=== PATIENT | male | born 1945 | race Caucasian/White ===

== ENCOUNTER → 2017-08-04 07:38 | Outpatient (CLI) | payer MEDICARE, OTHER, SELFPAY ==
[2017-08-04 10:09] LABS: BUN Creatinine Ratio 14.2 (6-22); Blood Urea Nitrogen 17 mg/dL (9-20); Calcium 9.2 mg/dL (8.4-10.2); Carbon Dioxide 31 mmol/L (22-32); Chloride 100 mmol/L (98-107); Estimated Glomerular Filt Rate 59.3 mL/min (>60); Glucose 91 mg/dL (80-110); HEMOLYSIS < 15 (0-50); Potassium 4.1 mmol/L (3.4-5.1); Sodium 142 mmol/L (137-145)
== END ==
PROVIDERS: Visit Provider Family Medicine
DX: N18.3 Chronic kidney disease, stage 3 (moderate) (principal)
CPT/HCPCS: 36415; 80048

== ENCOUNTER → 2017-09-26 07:29 | Outpatient (CLI) | payer MEDICARE, OTHER, SELFPAY ==
[2017-09-26 08:37] LABS: Alanine Aminotransferase 27 IU/L (21-72); Albumin 4.2 g/dL (3.5-5.0); Albumin Globulin Ratio 1.6 (1.0-2.8); Alkaline Phosphatase 80 U/L (38-126); Aspartate Aminotransferase 21 IU/L (17-59); Bilirubin Total 0.9 mg/dL (0.2-1.3); Blood Urea Nitrogen 26 mg/dL (9-20); Calcium 9.1 mg/dL (8.4-10.2); Carbon Dioxide 29 mmol/L (22-32); Chloride 106 mmol/L (98-107); Estimated Glomerular Filt Rate 54.1 mL/min (>60); Globulin 2.7 g/dL (1.7-4.1); Glucose 92 mg/dL (80-110); HEMOLYSIS < 15 (0-50); Potassium 3.7 mmol/L (3.4-5.1); Sodium 145 mmol/L (137-145); Total Protein 6.9 g/dL (6.3-8.2)
== END ==
PROVIDERS: Visit Provider Specialist
DX: N18.2 Chronic kidney disease, stage 2 (mild) (principal); I10 Essential (primary) hypertension; E78.2 Mixed hyperlipidemia
CPT/HCPCS: 36415; 80053

== ENCOUNTER → 2018-03-08 08:08 | Outpatient (CLI) | payer MEDICARE, OTHER, SELFPAY ==
[2018-03-08 09:39] LABS: Add Manual Diff / Slide Review NO; Appearance Urine UA CLEAR; Basophils Percent Auto 0.9 % (0-2); Bilirubin Urine UA NEGATIVE (NEGATIVE); Color Urine UA YELLOW; Eosinophils Percent Auto 6.5 % (2-4); Glucose Urine UA NEGATIVE (Negative); Hemoglobin 15.6 g/dL (13.5-17.5); Ketones Urine UA NEGATIVE (NEGATIVE); Leukocyte Esterase Urine UA NEGATIVE (NEGATIVE); Lymphocytes Percent Auto 23.2 % (25-40); Mean Corpuscular HGB Conc 33.9 % (30-36); Mean Corpuscular Hemoglobin 30.9 PG (26-34); Mean Corpuscular Volume 91.2 fL (80-100); Monocytes Percent Auto 9.8 % (3-14); Neutrophils Absolute Auto 3100 /uL (1500-7000); Neutrophils Percent Auto 59.6 % (50-75); Nitrite Urine UA NEGATIVE (Negative); Occult Blood Urine UA NEGATIVE (Negative); Platelet Count 178 X10^3/uL (150-400); Protein Urine UA NEGATIVE (Negative); Red Blood Cell Count 5.04 X10^6/uL (4.5-5.9); Red Cell Distribution Width 13.9 % (11.6-14.8); Specific Gravity Urine UA 1.015 (1.000-1.035); Urobilinogen Urine UA 0.2 E.U./dL (0.2); White Blood Cell Count 5.2 X10^3/uL (4.5-11.0)
[2018-03-08 10:30] LABS: Alanine Aminotransferase 31 IU/L (21-72); Albumin 4.1 g/dL (3.5-5.0); Albumin Globulin Ratio 1.6 (1.0-2.8); Alkaline Phosphatase 76 U/L (38-126); Aspartate Aminotransferase 24 IU/L (17-59); BUN Creatinine Ratio 12.5 (6-22); Bilirubin Total 1.2 mg/dL (0.2-1.3); Blood Urea Nitrogen 15 mg/dL (9-20); Calcium 9.2 mg/dL (8.4-10.2); Carbon Dioxide 28 mmol/L (22-32); Chloride 105 mmol/L (98-107); Cholesterol 172 mg/dL (140-199); Estimated Glomerular Filt Rate 59.2 mL/min (>60); Globulin 2.6 g/dL (1.7-4.1); Glucose 92 mg/dL (80-110); HDL Cholesterol 54 mg/dL (40-60); HEMOLYSIS < 15 (0-50); LDL Cholesterol Calculated 101 mg/dL (<100); Potassium 4.1 mmol/L (3.4-5.1); Sodium 143 mmol/L (137-145); Total Protein 6.7 g/dL (6.3-8.2); Triglycerides 86 mg/dL (35-150)
[2018-03-08 10:59] LABS: Prostate Specific Antigen Scrn 2.03 ng/mL (0.1-4.0)
[2018-03-08 11:20] LABS: Thyroid Stimulating Hormone 3.89 uIU/mL (0.47-4.68)
== END ==
PROVIDERS: PCP Family Medicine; Visit Provider Family Medicine
DX: E78.00 Pure hypercholesterolemia, unspecified (principal); I10 Essential (primary) hypertension; N18.3 Chronic kidney disease, stage 3 (moderate); Z51.81 Encounter for therapeutic drug level monitoring; Z12.5 Encounter for screening for malignant neoplasm of prostate
CPT/HCPCS: 36415; 80053; 80061; 81003; 84443; 85025; G0103

== ENCOUNTER 2018-09-10 12:29 | Day surgery (SDC) | payer MEDICARE, OTHER, SELFPAY ==
--- NOTE | 2018-09-10 | PATH_ITS ---
[facility] Accession Number: [id number] . 01 Material submitted: . PART A: colon - SIGMOID POLYP PART B: colon - SIGMOID POLYP . 02 Diagnosis: A. Sigmoid Colon, Polyp: Tubular adenoma. . B. Sigmoid Colon, Polyp: Colonic mucosa with no diagnostic abnormality, consistent with polypoid redundancy. Negative for serrated lesion, dysplasia or malignancy. . . . I09/11/2018 . 02 Electronically signed: . Favian Mercedes MD, PhD, Pathologist NPI- [id number] . 01 Gross description: . Part A: SIGMOID POLYP: Received in formalin is 1 fragment(s) of ruffin, soft tissue measuring 0.3 x 0.3 x 0.3 cm which is entirely submitted and submitted entirely in 1 cassette(s) Part B: SIGMOID POLYP: Received in formalin is 1 fragment(s) of ruffin, soft tissue measuring 0.5 x 0.3 x 0.2 cm which is entirely submitted and submitted entirely in 1 cassette(s) /DMC /DMC . 02 Pathologist provided ICD-10: D12.5, K63.5 . 02 CPT . 621889, 870897 Performed at: 01 [facility] [address], [place], [place] [id number] MD Vamshi Kincaid MD Phone: [phone] Performed at: 02 [facility] [address] [place], [place] [id number] MD Courtney Harris MD Phone: [phone]
--- NOTE | 2018-09-10 12:43 | PM.HP.1 ---
History of Present Illness Date Patient Seen: 09/10/18 Time Patient Seen: 12:43 Chief complaint: [id number] SCREENING COLONOSCOPY Narrative: 73yo M for surveillance colonoscopy. Has history of colon polyps. Last scope 5 years ago. Mother had CRC diagnosed at age 89 and lived to be 102. No alarm symptoms. Patient History Medical History Essential hypertension (Chronic 08/20/15) Chronic renal insufficiency, stage III (moderate) (Chronic 05/12/16) BPH (benign prostatic hyperplasia) (Chronic Unknown) Chronic renal insufficiency (Chronic Unknown) Erectile dysfunction (Chronic Unknown) GERD (gastroesophageal reflux disease) (Chronic Unknown) Glaucoma (Chronic Unknown) Hyperlipemia (Chronic Unknown) Hypertension (Chronic Unknown) Cataract (Resolved ) Fx wrist (Resolved 2000) Surgical History History of carpal tunnel surgery (Resolved 1984) Hx of cataract surgery (Resolved 2015) Family History Father Heart disease Grandfather Cancer Grandmother No problems noted. Mother Cancer Grandmother No problems noted. Grandfather Heart disease Sister No problems noted. Social History Smoking Status: Never smoker Family & Social History Family History Father Heart disease Grandfather Cancer Grandmother No problems noted. Mother Cancer Grandmother No problems noted. Grandfather Heart disease Sister No problems noted. Tobacco & Substance use: Smoking Status Never smoker Meds Home Medications Medication Instructions Recorded Confirmed Type ASPIRIN (Aspirin EC) 81 mg PO QDAY #0 06/07/11 05/07/18 History timolol maleate 1 drp OPHTH BID #0 06/13/16 05/07/18 History atenolol 100 mg tablet 50 mg PO QDAY #45 tabs 08/28/17 05/07/18 Rx tizanidine 2 mg tablet 2 mg PO TID PRN #90 tab 10/30/17 05/07/18 Rx simvastatin 20 mg tablet 20 mg PO HS #90 tab 11/09/17 05/07/18 Rx latanoprost (PF) 0.005 % eye drops 1 drop EYE-BOTH DAILY ml 01/30/18 05/07/18 History hydrochlorothiazide 12.5 mg tablet See Rx Instructions .ROUTE 07/23/18 Rx .COMPLEX #90 tab amlodipine 5 mg tablet 5 mg PO DAILY #90 tab 07/28/18 Rx Allergies Allergy/AdvReac Type Severity Reaction Status Date / Time Penicillins [PENICILLINS] Allergy Mild ITCH, HIVES Verified 09/10/18 12:47 Review of Systems Constitutional Constitutional: Reports as per HPI Exam Narrative Exam Narrative: AAO, NAD EOMI, MMM, no scleral icterus unlabored RA soft, nt/nd MAEW visible skin dry and intact Assessment & Plan (1) History of colon polyps: Current visit: Yes Status: Acute Assessment & Plan narrative: - plan for surveillance colonoscopy in high risk patient --> all R/B/A discussed and pt wishes to proceed
[2018-09-10 12:45] VITALS: BP 190/95; PULSE 62; RESP 20; TEMP 36.4; O2SAT 97; BMI 28.1
[2018-09-10] MEDS: SODIUM CHLORIDE 0.9% 1,000 ML 200 ML IV (12:46)
[2018-09-10] MEDS: MIDAZOLAM 5 MG/5 ML VIAL IV (14:37)
[2018-09-10] MEDS: fentaNYL 250 MCG/5 ML INJ IV (14:38)
--- NOTE | 2018-09-10 14:48 | PM.OP.ENDO ---
Operative Date/Time/Diagnoses Date of procedure: 09/10/18 Time of procedure: 14:48 Pre-op diagnosis: History of colon polyps; Family history of colon cancer Post-op diagnosis: other (1. same 2. diverticulosis 3. polyps) Procedure & Clinicians Study performed: Surveillance colonoscopy in high risk patient Same procedure as scheduled: Yes Indications: 73yo M with personal history of polyps and family history of CRC of mother in her late 80s. Surgeon: Joy Prajapati Procedure Notes SCOAP/Timeout: 1419 Procedure in detail: After obtaining informed consent, the patient was brought to the GI suite and placed in the left lateral decubitus position on the examination table. After placement of appropriate monitors, the patient was given incremental doses of Versed and Fentanyl until an appropriate level of sedation was achieved. A time out was held per SCOAP protocol. A digital rectal examination was performed and did not reveal any masses or obstructing lesions. The colonoscope was gently passed into the patient's anus and the entire colon navigated to the level of the cecum with minimal difficulty. Prep was adequate, mostly clear but occasional stool balls were noted and stool impacted numerous diverticula. Once in the cecum, the scope was slowly withdrawn being sure to go before and beyond all mucosal folds and prominences as able to get a thorough examination. Two small polyps are noted in the sigmoid colon, one 4mm and raised and the other diminutive and flat. Other findings include severe bower-colonic diverticulosis. At the level of the rectal vault, the scope was retroflexed and the internal anal canal was examined. The scope was straightened and air aspirated from the colon. The instrument was removed from the patient's body and the procedure was concluded. The patient was allowed to awaken from sedation without difficulty and taken to the post-anesthesia care unit in good condition. Scope withdrawal time: 9 min Sedation minutes: 26 Findings: diverticulosis and polyp (sigmoid polyp at 50cm- flat, hyperplastic in appearance; sigmoid polyp at 40cm- protuberant, 4mm, removed with hot snare) Specimen(s): other (sigmoid polyps x2) Complications: none Impression: 1. Severe bower-colonic diverticulosis 2. Sigmoid polyps x2 Recommendations: Colonscopy in 5 years (pending path) and High fiber diet Follow up: as needed Disposition: PACU
[2018-09-10 14:50] VITALS: BP 114/68; PULSE 68; RESP 20; TEMP 36.9; O2SAT 97
[2018-09-10 15:15] VITALS: BP 127/77; PULSE 65; RESP 20; TEMP 36.9; O2SAT 97
== END 2018-09-10 14:15 | disposition home or self-care (01) ==
PROVIDERS: PCP Family Medicine; Visit Provider Surgery
PROC: 0DJD8ZZ Inspection of Lower Intestinal Tract, Via Natural or Artificial Opening Endoscopic (ICD-10-PCS; CPT 45378; principal; 2018-09-10 14:00)
DX: Z86.010 Personal history of colon polyps (principal); Z80.0 Family history of malignant neoplasm of digestive organs; K57.30 Diverticulosis of large intestine without perforation or abscess without bleeding; D12.5 Benign neoplasm of sigmoid colon; K63.5 Polyp of colon
CPT/HCPCS: 45385; 88305; 99152; J2250; J3010

== ENCOUNTER → 2018-09-11 07:40 | Outpatient (CLI) | payer MEDICARE, OTHER, SELFPAY ==
[2018-09-11 08:20] LABS: Alanine Aminotransferase 27 IU/L (21-72); Albumin 4.3 g/dL (3.5-5.0); Albumin Globulin Ratio 1.4 (1.0-2.8); Alkaline Phosphatase 76 U/L (38-126); Aspartate Aminotransferase 23 IU/L (17-59); BUN Creatinine Ratio 16.2 (6-22); Bilirubin Total 1.7 mg/dL (0.2-1.3); Blood Urea Nitrogen 21 mg/dL (9-20); Carbon Dioxide 29 mmol/L (22-32); Chloride 106 mmol/L (98-107); Globulin 3.1 g/dL (1.7-4.1); Glucose 116 mg/dL (80-110); HEMOLYSIS < 15 (0-50); Potassium 3.7 mmol/L (3.4-5.1); Sodium 143 mmol/L (137-145); Total Protein 7.4 g/dL (6.3-8.2)
== END ==
PROVIDERS: PCP Family Medicine; Visit Provider Specialist
DX: N18.2 Chronic kidney disease, stage 2 (mild) (principal); I10 Essential (primary) hypertension; E78.2 Mixed hyperlipidemia
CPT/HCPCS: 36415; 80053

== ENCOUNTER → 2019-02-28 07:37 | Outpatient (CLI) | payer MEDICARE, OTHER, SELFPAY ==
--- NOTE | 2019-02-28 07:43 | DI.RAD.S_ITS ---
PROCEDURE: XR SHOULDER RT MIN 2V INDICATIONS: impingement syndrome of R shoulder Region TECHNIQUE: 3 views of the shoulder were acquired. COMPARISON: None. FINDINGS: Bones: No fractures or dislocations. No suspicious bony lesions. Visualized ribs appear intact. Mild degenerative change at the glenohumeral and acromioclavicular joints, without osteophyte impingement visualized against the expected course of the supraspinatus rotator cuff. Soft tissues: No suspicious soft tissue calcifications. IMPRESSION: Osseous impingement is not identified, but there is mild degenerative osteoarthritic change. Please note that fibrous hypertrophy and secondary impingement is not detectable by plain film. MR scanning may be warranted. Dictated by: Joselito Faulkner M.D. on 02/28/2019 at 8:38 Approved by: Joselito Faulkner M.D. on 02/28/2019 at 8:40
--- NOTE | 2019-02-28 07:43 | DI.RAD.S_ITS ---
PROCEDURE: XR CHEST 2V INDICATIONS: benign non-nodular prostatic TECHNIQUE: 2 views of the chest were acquired. COMPARISON: None. FINDINGS: Surgical changes and devices: None. Lungs and pleura: Lungs are clear except for a mild interstitial prominence perhaps reflecting prior smoking history. No pleural effusions or pneumothorax and there is a left-sided area of fusiform pleural thickening laterally, superimposed on the inferior tip of the left scapula, having a craniocaudad length of 5.1 cm in maximal transverse dimension of 1.9 cm. Underlying ostiolysis of rib structures is not found. Mediastinum: Mediastinal contours are normal. Heart size is normal. Bones and chest wall: No suspicious bony abnormalities. Soft tissues appear unremarkable. IMPRESSION: Mild interstitial prominence over the lung parenchyma, suspect prior smoking history. Lateral pleural mass on the left at approximately the junction of the upper and middle thirds, measuring up to 5.1 x 1.9 cm, which could represent benign or malignant etiology. Followup contrast enhanced CT scanning appears warranted unless outside comparison studies are available to establish chronicity of this finding. Dictated by: Joselito Faulkner M.D. on 02/28/2019 at 8:30 Approved by: Joselito Faulkner M.D. on 02/28/2019 at 8:38
[2019-02-28 08:14] LABS: Add Manual Diff / Slide Review NO; Basophils Absolute Auto 0 /uL (0-100); Basophils Percent Auto 0.7 % (0-2); Eosinophils Absolute Auto 400 /uL (0-450); Eosinophils Percent Auto 8.8 % (2-4); Hematocrit 45.1 % (41-53); Hemoglobin 15.9 g/dL (13.5-17.5); Lymphocytes Absolute Auto 1300 /uL (1100-4500); Lymphocytes Percent Auto 29.9 % (25-40); Mean Corpuscular HGB Conc 35.2 % (30-36); Mean Corpuscular Hemoglobin 31.6 PG (26-34); Mean Corpuscular Volume 89.8 fL (80-100); Monocytes Absolute Auto 500 /uL (0-900); Monocytes Percent Auto 10.4 % (3-14); Neutrophils Absolute Auto 2200 /uL (1500-7000); Neutrophils Percent Auto 50.2 % (50-75); Platelet Count 184 X10^3/uL (150-400); Red Blood Cell Count 5.03 X10^6/uL (4.5-5.9); White Blood Cell Count 4.5 X10^3/uL (4.5-11.0)
[2019-02-28 08:31] LABS: Alanine Aminotransferase 23 IU/L (<50); Albumin 4.4 g/dL (3.5-5.0); Albumin Globulin Ratio 1.7 (1.0-2.8); Alkaline Phosphatase 90 U/L (38-126); Aspartate Aminotransferase 29 IU/L (17-59); BUN Creatinine Ratio 19.1 (6-22); Bilirubin Total 1.3 mg/dL (0.2-1.3); Blood Urea Nitrogen 21 mg/dL (9-20); Calcium 9.4 mg/dL (8.4-10.2); Carbon Dioxide 31 mmol/L (22-32); Chloride 105 mmol/L (98-107); Cholesterol 165 mg/dL (140-199); Estimated Glomerular Filt Rate > 60.0 mL/min (>60); Globulin 2.6 g/dL (1.7-4.1); Glucose 111 mg/dL (80-110); HDL Cholesterol 49 mg/dL (40-60); HEMOLYSIS < 15 (0-50); LDL Cholesterol Calculated 97 mg/dL (<100); Potassium 3.9 mmol/L (3.4-5.1); Sodium 143 mmol/L (137-145); Triglycerides 93 mg/dL (35-150)
[2019-02-28 09:02] LABS: Prostate Specific Antigen 2.88 ng/mL (0.10-4.00)
[2019-02-28 09:03] LABS: Thyroid Stimulating Hormone 3.39 uIU/mL (0.47-4.68)
== END ==
PROVIDERS: PCP Family Medicine; Visit Provider Family Medicine
DX: M75.41 Impingement syndrome of right shoulder (principal); R91.8 Other nonspecific abnormal finding of lung field; R93.89 Abnormal findings on diagnostic imaging of other specified body structures; Z13.220 Encounter for screening for lipoid disorders; N18.3 Chronic kidney disease, stage 3 (moderate); I12.9 Hypertensive chronic kidney disease with stage 1 through stage 4 chronic kidney disease, or unspecified chronic kidney disease; N40.1 Benign prostatic hyperplasia with lower urinary tract symptoms
CPT/HCPCS: 36415; 71046; 73030; 80053; 80061; 84153; 84443; 85025

== ENCOUNTER → 2019-04-01 13:03 | Outpatient (CLI) | payer MEDICARE, OTHER, SELFPAY ==
--- NOTE | 2019-04-01 13:31 | DI.CT.S_ITS ---
PROCEDURE: CT CHEST W CON INDICATIONS: Mass on Chest Xray TECHNIQUE: After the administration of intravenous contrast, 5 mm thick sections acquired from the pulmonary apices to the posterior costophrenic angles. 1 mm axial lung, 5 mm thick coronal and sagittal reformats and 7 mm axial MIP were acquired. For radiation dose reduction, the following was used: automated exposure control, adjustment of mA and/or kV according to patient size. COMPARISON: [facility], , XR CHEST 2V, 02/28/2019, 7:50. FINDINGS: Image quality: Excellent. Lungs and pleura: No acute air space opacities. No pleural effusions or pneumothorax. There is, however, a left-sided fatty mass with epicenter at the intercostal space between what appears to be the lateral aspect of the fourth and fifth ribs, measuring up to 3.7 cm craniocaudad and 5.4 cm AP and 3.4 cm transverse. This extends both internal and external to the intercostal musculature involving a defect in the musculature, measuring up to 1.4 cm in diameter. Central and peripheral airways are patent and normal in caliber. Mediastinum: Heart size is normal. No pericardial effusion. No mediastinal or hilar adenopathy by size criteria. Thoracic aorta and central pulmonary arteries are normal in size. Esophagus is normal in caliber. No hiatal hernia. Bones and chest wall: No suspicious bony lesions. No vertebral body compression fractures. No axillary or supraclavicular adenopathy by size criteria. Thyroid gland appears normal where well seen. Abdomen: Visualized upper abdominal solid organs appear normal. Upper abdominal bowel loops are normal in caliber. There is a 3.9 cm water density right hepatic cyst anterior segment, subcapsular. 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 The involvement through the intercostal space is somewhat unusual, and this area could be followed for interval change by chest plain film, frontal view only, in 3 months and in 6 months thereafter (9 months total) to confirm stability over time and document benign etiology. If there are comparison plain films elsewhere they would be valuable to obtain also. Dictated by: Joselito Faulkner M.D. on 04/01/2019 at 15:05 Approved by: Joselito Faulkner M.D. on 04/01/2019 at 15:16
[2019-04-01 13:37] LABS: Alanine Aminotransferase 18 IU/L (<50); Albumin 4.3 g/dL (3.5-5.0); Albumin Globulin Ratio 1.3 (1.0-2.8); Alkaline Phosphatase 89 U/L (38-126); Aspartate Aminotransferase 25 IU/L (17-59); BUN Creatinine Ratio 15.8 (6-22); Bilirubin Total 1.2 mg/dL (0.2-1.3); Blood Urea Nitrogen 19 mg/dL (9-20); Calcium 9.3 mg/dL (8.4-10.2); Carbon Dioxide 29 mmol/L (22-32); Chloride 106 mmol/L (98-107); Globulin 3.3 g/dL (1.7-4.1); Glucose 87 mg/dL (80-110); HEMOLYSIS < 15 (0-50); Potassium 3.9 mmol/L (3.4-5.1); Sodium 144 mmol/L (137-145); Total Protein 7.6 g/dL (6.3-8.2)
== END ==
PROVIDERS: PCP Family Medicine; Visit Provider Family Medicine
DX: D17.4 Benign lipomatous neoplasm of intrathoracic organs (principal); K76.89 Other specified diseases of liver; Z76.89 Persons encountering health services in other specified circumstances
CPT/HCPCS: 36415; 71260; 80053; Q9967

== ENCOUNTER → 2019-04-08 07:32 | Outpatient (CLI) | payer MEDICARE, OTHER, SELFPAY ==
[2019-04-08 08:13] LABS: Cholesterol 169 mg/dL (140-199); HDL Cholesterol 41 mg/dL (40-60); LDL Cholesterol Calculated 105 mg/dL (<100); Triglycerides 113 mg/dL (35-150)
[2019-04-08 08:39] LABS: Prostate Specific Antigen Scrn 2.48 ng/mL (0.1-4.0)
[2019-04-08 09:08] LABS: TSH w/ Reflex to FT4 8.33 uIU/mL (0.47-4.68)
[2019-04-08 09:44] LABS: Free T4, Direct Thyroxine 0.75 ng/dL (0.78-2.19)
== END ==
PROVIDERS: PCP Family Medicine; Referring Provider Family Medicine; Visit Provider Family Medicine
DX: Z76.89 Persons encountering health services in other specified circumstances (principal); Z12.5 Encounter for screening for malignant neoplasm of prostate
CPT/HCPCS: 36415; 80061; 83036; 84439; 84443; G0103

== ENCOUNTER → 2019-07-03 11:18 | Outpatient (CLI) | payer MEDICARE, OTHER, SELFPAY ==
--- NOTE | 2019-07-03 11:21 | DI.RAD.S_ITS ---
PROCEDURE: XR CHEST 2V INDICATIONS: Chest wall abnormality TECHNIQUE: 2 views of the chest were acquired. COMPARISON: [facility], CT, CT CHEST W CON, 04/01/2019, 13:37. [facility], CR, XR CHEST 2V, 02/28/2019, 7:50. FINDINGS: Surgical changes and devices: None. Lungs and pleura: Lungs are clear. No pleural effusions or pneumothorax. The peripheral ovoid left upper lung region pleural contour abnormality is stable over time and has been also been evaluated by CT scanning 04/01/19. Mediastinum: Mediastinal contours are normal. Heart size is normal. Bones and chest wall: No suspicious bony abnormalities. Soft tissues appear unremarkable. IMPRESSION: Stable size of a pleural based contour abnormality left upper lobe area, found by prior CT scanning to represent a fatty mass, presumably benign given the absence of change booth attendant time. Dictated by: Joselito Faulkner M.D. on 07/03/2019 at 12:17 Approved by: Joselito Faulkner M.D. on 07/03/2019 at 12:20
[2019-07-03 13:27] LABS: TSH w/ Reflex to FT4 0.06 uIU/mL (0.47-4.68)
== END ==
PROVIDERS: PCP Family Medicine; Referring Provider Family Medicine; Visit Provider Family Medicine
DX: J31.0 Chronic rhinitis (principal); E03.9 Hypothyroidism, unspecified; Q67.8 Other congenital deformities of chest
CPT/HCPCS: 36415; 71046; 84439; 84443

== ENCOUNTER → 2019-08-28 07:41 | Outpatient (CLI) | payer MEDICARE, OTHER, SELFPAY ==
[2019-08-28 07:55] LABS: Bacteria Urine None Seen; RBC Urine None Seen (0-5/HPF); WBC Urine None Seen (0-5/HPF)
[2019-08-28 09:00] LABS: Appearance Urine UA CLEAR; Bilirubin Urine UA NEGATIVE (NEGATIVE); Color Urine UA YELLOW; Glucose Urine UA NEGATIVE (Negative); Ketones Urine UA NEGATIVE (NEGATIVE); Leukocyte Esterase Urine UA NEGATIVE (NEGATIVE); Nitrite Urine UA NEGATIVE (Negative); Occult Blood Urine UA NEGATIVE (Negative); Protein Urine UA NEGATIVE (Negative); Specific Gravity Urine UA 1.025 (1.000-1.035); Urobilinogen Urine UA 0.2 E.U./dL (0.2); pH Urine UA 5.5 (4.5-8.0)
[2019-08-28 09:20] LABS: Add Manual Diff / Slide Review NO; Basophils Absolute Auto 0 /uL (0-100); Basophils Percent Auto 0.9 % (0-2); Eosinophils Absolute Auto 300 /uL (0-450); Eosinophils Percent Auto 6.6 % (2-4); Hematocrit 42.3 % (41-53); Hemoglobin 14.6 g/dL (13.5-17.5); Lymphocytes Absolute Auto 1200 /uL (1100-4500); Lymphocytes Percent Auto 26.9 % (25-40); Mean Corpuscular HGB Conc 34.6 % (30-36); Mean Corpuscular Hemoglobin 31.1 PG (26-34); Mean Corpuscular Volume 89.8 fL (80-100); Monocytes Absolute Auto 600 /uL (0-900); Monocytes Percent Auto 13.2 % (3-14); Neutrophils Absolute Auto 2400 /uL (1500-7000); Neutrophils Percent Auto 52.4 % (50-75); Platelet Count 178 X10^3/uL (150-400); White Blood Cell Count 4.6 X10^3/uL (4.5-11.0)
[2019-08-28 09:25] LABS: Culture Indicated Urine Cult Not Indicated; Urine Comments Microscopic Normal
[2019-08-28 09:55] LABS: Alanine Aminotransferase 19 IU/L (<50); Albumin 4.2 g/dL (3.5-5.0); Albumin Globulin Ratio 1.6 (1.0-2.8); Alkaline Phosphatase 79 U/L (38-126); Aspartate Aminotransferase 27 IU/L (17-59); BUN Creatinine Ratio 19.3 (6-22); Bilirubin Total 1.2 mg/dL (0.2-1.3); Blood Urea Nitrogen 22 mg/dL (9-20); Calcium 9.2 mg/dL (8.4-10.2); Carbon Dioxide 30 mmol/L (22-32); Chloride 106 mmol/L (98-107); Estimated Glomerular Filt Rate > 60.0 mL/min (>60); Globulin 2.7 g/dL (1.7-4.1); Glucose 92 mg/dL (80-110); HEMOLYSIS < 15 (0-50); Potassium 3.7 mmol/L (3.4-5.1); Sodium 140 mmol/L (137-145); Total Protein 6.9 g/dL (6.3-8.2)
[2019-08-28 09:59] LABS: Protein (Total) Urine Random 7 mg/dL (0-12)
[2019-08-28 13:36] LABS: Creatinine Urine Random 215.9 mg/dL; Protein Creatinine Ratio Urine 0.03 GRAM/24H
== END ==
PROVIDERS: PCP Family Medicine; Referring Provider Specialist; Visit Provider Specialist
DX: M18.30 Unilateral post-traumatic osteoarthritis of first carpometacarpal joint, unspecified hand (principal); I10 Essential (primary) hypertension
CPT/HCPCS: 36415; 80053; 81001; 82570; 84156; 85025

== ENCOUNTER → 2019-10-08 14:22 | Outpatient (CLI) | payer MEDICARE, OTHER, SELFPAY ==
[2019-10-08 15:55] LABS: Free T4, Direct Thyroxine 1.28 ng/dL (0.78-2.19)
== END ==
PROVIDERS: PCP Family Medicine; Referring Provider Family Medicine; Visit Provider Family Medicine
DX: E03.9 Hypothyroidism, unspecified (principal)
CPT/HCPCS: 36415; 84439

== ENCOUNTER → 2020-08-27 07:20 | Outpatient (CLI) | payer MEDICARE, OTHER, SELFPAY ==
[2020-08-27 07:30] LABS: Bacteria Urine None Seen; RBC Urine None Seen (0-5/HPF)
[2020-08-27 07:59] LABS: Add Manual Diff / Slide Review NO; Appearance Urine UA CLEAR; Basophils Absolute Auto 0 /uL (0-100); Basophils Percent Auto 0.9 % (0-2); Bilirubin Urine UA NEGATIVE (NEGATIVE); Color Urine UA YELLOW; Eosinophils Absolute Auto 300 /uL (0-450); Eosinophils Percent Auto 6.2 % (2-4); Glucose Urine UA NEGATIVE (Negative); Hematocrit 45.4 % (41-53); Hemoglobin 15.7 g/dL (13.5-17.5); Ketones Urine UA NEGATIVE (NEGATIVE); Leukocyte Esterase Urine UA NEGATIVE (NEGATIVE); Lymphocytes Absolute Auto 1300 /uL (1100-4500); Lymphocytes Percent Auto 26.9 % (25-40); Mean Corpuscular HGB Conc 34.5 % (30-36); Mean Corpuscular Hemoglobin 30.8 PG (26-34); Mean Corpuscular Volume 89.1 fL (80-100); Monocytes Absolute Auto 500 /uL (0-900); Monocytes Percent Auto 10.8 % (3-14); Neutrophils Absolute Auto 2600 /uL (1500-7000); Neutrophils Percent Auto 55.2 % (50-75); Nitrite Urine UA NEGATIVE (Negative); Occult Blood Urine UA NEGATIVE (Negative); Platelet Count 175 X10^3/uL (150-400); Protein Urine UA TRACE (Negative); Red Cell Distribution Width 13.8 % (11.6-14.8); Specific Gravity Urine UA 1.025 (1.000-1.035); Urobilinogen Urine UA 0.2 E.U./dL (0.2); White Blood Cell Count 4.7 X10^3/uL (4.5-11.0)
[2020-08-27 08:14] LABS: Protein (Total) Urine Random 8 mg/dL (0-12)
[2020-08-27 08:17] LABS: Alanine Aminotransferase 23 IU/L (<50); Albumin 4.2 g/dL (3.5-5.0); Albumin Globulin Ratio 1.6 (1.0-2.8); Alkaline Phosphatase 87 U/L (38-126); Aspartate Aminotransferase 30 IU/L (17-59); BUN Creatinine Ratio 14.4 (6-22); Bilirubin Total 1.7 mg/dL (0.2-1.3); Blood Urea Nitrogen 16 mg/dL (9-20); Calcium 9.6 mg/dL (8.4-10.2); Carbon Dioxide 28 mmol/L (22-32); Chloride 107 mmol/L (98-107); Estimated Glomerular Filt Rate > 60.0 mL/min (>60); Globulin 2.7 g/dL (1.7-4.1); Glucose 108 mg/dL (80-110); HEMOLYSIS < 15 (0-50); Potassium 3.7 mmol/L (3.4-5.1); Sodium 142 mmol/L (137-145); Total Protein 6.9 g/dL (6.3-8.2)
[2020-08-27 08:22] LABS: Culture Indicated Urine Specimen Cultured; WBC Urine 5-10/HPF (0-5/HPF)
[2020-09-07 11:45] LABS: Calcium 9.4
[2020-09-07 11:46] LABS: Parathyroid Hormone, Intact 74
== END ==
PROVIDERS: PCP Family Medicine; Referring Provider Specialist; Visit Provider Specialist
DX: I10 Essential (primary) hypertension (principal); N40.0 Benign prostatic hyperplasia without lower urinary tract symptoms
CPT/HCPCS: 80053; 81001; 82310; 83970; 84156; 85025; 87086

== ENCOUNTER → 2021-01-18 11:52 | Outpatient (CLI) | payer MEDICARE, OTHER, SELFPAY ==
[2021-01-18 14:10] LABS: Alanine Aminotransferase 19 IU/L (<50); Albumin 4.2 g/dL (3.5-5.0); Albumin Globulin Ratio 1.6 (1.0-2.8); Alkaline Phosphatase 87 U/L (38-126); Aspartate Aminotransferase 23 IU/L (17-59); BUN Creatinine Ratio 18.3 (6-22); Bilirubin Total 1.1 mg/dL (0.2-1.3); Blood Urea Nitrogen 21 mg/dL (9-20); Calcium 9.1 mg/dL (8.4-10.2); Carbon Dioxide 28 mmol/L (22-32); Chloride 105 mmol/L (98-107); Estimated Glomerular Filt Rate > 60.0 mL/min (>60); Globulin 2.7 g/dL (1.7-4.1); Glucose 126 mg/dL (80-110); HEMOLYSIS < 15 (0-50); Sodium 142 mmol/L (137-145); Total Protein 6.9 g/dL (6.3-8.2)
[2021-01-18 14:28] LABS: Free T4, Direct Thyroxine 1.11 ng/dL (0.78-2.19)
[2021-01-18 14:39] LABS: Prostate Specific Antigen Scrn 2.58 ng/mL (0.1-4.0)
[2021-01-18 14:42] LABS: Thyroid Stimulating Hormone 0.155 uIU/mL (0.47-4.68)
== END ==
PROVIDERS: PCP Family Medicine; Referring Provider Family Medicine; Visit Provider Family Medicine
DX: Z12.5 Encounter for screening for malignant neoplasm of prostate (principal); I10 Essential (primary) hypertension; E03.9 Hypothyroidism, unspecified; N18.1 Chronic kidney disease, stage 1; N40.0 Benign prostatic hyperplasia without lower urinary tract symptoms
CPT/HCPCS: 36415; 80053; 84439; 84443; G0103

== ENCOUNTER → 2021-04-28 11:47 | Outpatient (CLI) | payer MEDICARE, OTHER, SELFPAY ==
--- NOTE | 2021-04-28 11:49 | DI.CT.S_ITS ---
PROCEDURE: CT HEAD/BRAIN WO CON INDICATIONS: balance issues, x3 months worsening TECHNIQUE: Noncontrast 4.5 mm thick angled axial sections acquired from the foramen magnum to the vertex, with coronal and sagittal reformats. For radiation dose reduction, the following was used: automated exposure control, adjustment of mA and/or kV according to patient size. COMPARISON: [facility], MR, BRAIN W&WO CONTRAST, 02/06/2015, 17:24. FINDINGS: Image quality: Excellent. CSF spaces: Basal cisterns are patent. Chronic appearing bilateral subdural hygromas can be seen, right larger than left, without danitza acute components. The right subdural hygroma measures approximately 1 cm in thickness wall of the left subdural hygroma measures approximately 0.6 cm in thickness. There is a vein running across the right subdural hygroma, as seen on series 2, image 14 and on series 4, image 12. The ventricles are symmetric in size and shape. Brain: No intracranial masses. There is cerebral volume loss for age, with resultant ventricular and sulcal prominence. There are periventricular and deep white matter chronic small vessel ischemic changes. There is a remote appearing right cerebellar infarction seen, with volume loss encephalomalacia. There is intracranial internal carotid artery atherosclerosis. Skull and face: Calvarium and visualized facial bones appear intact, without suspicious lesions. Sinuses: Visualized sinuses and mastoids are clear. IMPRESSION: Remote appearing right cerebellar infarction. This infarction is not seen in 2015. Bilateral subdural hygromas are seen, which demonstrate a chronic appearance. These are larger on the right than on the left. If it would be helpful for clinical management decision making, please consider a dedicated, scheduled brain (IAC protocol, without and with contrast) MRI for further evaluation (assuming that there is no contraindication). Dictated by: Yousif Cesar M.D. on 04/28/2021 at 11:20 Approved by: Yousif Cesar M.D. on 04/28/2021 at 11:23
== END ==
PROVIDERS: PCP Family Medicine; Referring Provider Physician Assistant; Visit Provider Physician Assistant
DX: G96.08 Other cranial cerebrospinal fluid leak (principal); I65.23 Occlusion and stenosis of bilateral carotid arteries; R26.89 Other abnormalities of gait and mobility
CPT/HCPCS: 70450

== ENCOUNTER → 2021-05-02 10:47 | Outpatient (CLI) | payer MEDICARE, OTHER, SELFPAY ==
--- NOTE | 2021-05-02 10:49 | DI.MRI.S_ITS ---
PROCEDURE: MR BRAIN (IAC) WWO CON INDICATIONS: balance , abnormal CT head/remote cerebral infarction, sub TECHNIQUE: Noncontrast sagittal T1 spin echo, axial FLAIR, axial gradient echo, axial diffusion and ADC through the brain. Axial thin-slice 3D CISS, coronal TruFISP, axial T1 spin echo with fat saturation through the internal auditory canals. After the administration of contrast, thin slice axial and coronal T1 spin echo with fat saturation through the internal auditory canals, and axial T1 spin echo with fat saturation through the brain. COMPARISON: [facility], CT, CT HEAD/BRAIN WO CON, 04/28/2021, 12:08. [facility], MR, BRAIN W&WO CONTRAST, 02/06/2015, 17:24. FINDINGS: Image quality: Excellent. Cranial nerves: No cerebellopontine angle masses. No areas of abnormal signal, enhancement or mass lesion within the visualized cranial nerves or cerebellopontine angles. CSF spaces: Ventricles are normal in size and shape. No extra-axial fluid collections. Basal cisterns are patent. Brain: The ventricular system and cortical sulci demonstrate atrophy, consistent for the patient's stated age. Chronic bilateral subdural hygromas are present without visualized acute hemorrhage. There are areas of increased T2/FLAIR signal intensity within the periventricular and subcortical white matter. There is no acute intra-or extra axial fluid collection. No acute hemorrhage, mass lesion or midline shift. Brainstem is unremarkable. There is hyperintensity on diffusion sequence within the right cerebellum with equivocal/slightly hypointense ADC signal. This corresponds to area of hypodensity on prior CT as well as hyperintensity on T2/FLAIR sequences of current exam. Globes are symmetrical. Sinuses are aerated. Osseous structures are intact. IMPRESSION: Restricted diffusion with equivocal/hypointense ADC signal within the right cerebellum most consistent with subacute ischemia. No superimposed hemorrhage. Cranial nerves demonstrate no areas of abnormal signal, enhancement or mass lesion. Dictated by: Yamilet Chawla M.D. on 05/03/2021 at 10:41 Approved by: Yamilet Chawla M.D. on 05/03/2021 at 10:47
== END ==
PROVIDERS: PCP Family Medicine; Referring Provider Registered Nurse; Visit Provider Registered Nurse
DX: R90.89 Other abnormal findings on diagnostic imaging of central nervous system (principal); I63.9 Cerebral infarction, unspecified; G96.08 Other cranial cerebrospinal fluid leak
CPT/HCPCS: 70553; A9579

== ENCOUNTER → 2021-05-28 10:54 | Outpatient (CLI) | payer MEDICARE, OTHER, SELFPAY ==
[2021-05-28 12:14] LABS: Add Manual Diff / Slide Review NO; Basophils Absolute Auto 0 /uL (0-100); Basophils Percent Auto 0.8 % (0-2); Eosinophils Absolute Auto 400 /uL (0-450); Eosinophils Percent Auto 8.2 % (2-4); Hematocrit 42.2 % (41-53); Hemoglobin 14.8 g/dL (13.5-17.5); Lymphocytes Absolute Auto 1100 /uL (1100-4500); Lymphocytes Percent Auto 22.4 % (25-40); Mean Corpuscular Hemoglobin 30.9 PG (26-34); Mean Corpuscular Volume 88.1 fL (80-100); Monocytes Absolute Auto 500 /uL (0-900); Monocytes Percent Auto 9.7 % (3-14); Neutrophils Absolute Auto 2800 /uL (1500-7000); Neutrophils Percent Auto 58.9 % (50-75); Platelet Count 184 X10^3/uL (150-400); Red Blood Cell Count 4.79 X10^6/uL (4.5-5.9); Red Cell Distribution Width 13.7 % (11.6-14.8); White Blood Cell Count 4.8 X10^3/uL (4.5-11.0)
[2021-05-28 12:21] LABS: Alanine Aminotransferase 21 IU/L (<50); Albumin 4.3 g/dL (3.5-5.0); Albumin Globulin Ratio 1.4 (1.0-2.8); Alkaline Phosphatase 87 U/L (38-126); Aspartate Aminotransferase 28 IU/L (17-59); BUN Creatinine Ratio 15.3 (6-22); Bilirubin Total 1.5 mg/dL (0.2-1.3); Blood Urea Nitrogen 17 mg/dL (9-20); Carbon Dioxide 29 mmol/L (22-32); Chloride 106 mmol/L (98-107); Cholesterol 158 mg/dL (140-199); Estimated Glomerular Filt Rate > 60.0 mL/min (>60); Glucose 106 mg/dL (80-110); HDL Cholesterol 35 mg/dL (40-60); HEMOLYSIS < 15 (0-50); LDL Cholesterol Calculated 104 mg/dL (<100); Potassium 3.8 mmol/L (3.4-5.1); Sodium 142 mmol/L (137-145); Total Protein 7.3 g/dL (6.3-8.2); Triglycerides 94 mg/dL (35-150)
[2021-05-28 12:57] LABS: Free T4, Direct Thyroxine 1.44 ng/dL (0.78-2.19)
== END ==
PROVIDERS: PCP Family Medicine; Referring Provider Family Medicine; Visit Provider Family Medicine
DX: I10 Essential (primary) hypertension (principal); E03.9 Hypothyroidism, unspecified; I63.9 Cerebral infarction, unspecified; N18.9 Chronic kidney disease, unspecified
CPT/HCPCS: 36415; 80053; 80061; 84439; 84443; 85025

== ENCOUNTER → 2021-10-15 07:26 | Outpatient (CLI) | payer MEDICARE, OTHER, SELFPAY ==
[2021-10-15 09:10] LABS: Appearance Urine UA CLEAR; Bilirubin Urine UA NEGATIVE (NEGATIVE); Color Urine UA YELLOW; Glucose Urine UA NEGATIVE (Negative); Ketones Urine UA TRACE (NEGATIVE); Leukocyte Esterase Urine UA NEGATIVE (NEGATIVE); Nitrite Urine UA NEGATIVE (Negative); Occult Blood Urine UA TRACE-INTACT (Negative); Protein Urine UA NEGATIVE (Negative); Specific Gravity Urine UA 1.025 (1.000-1.035); Urobilinogen Urine UA 0.2 E.U./dL (0.2)
[2021-10-15 09:16] LABS: Add Manual Diff / Slide Review NO; Basophils Absolute Auto 0 /uL (0-100); Basophils Percent Auto 0.7 % (0-2); Eosinophils Absolute Auto 400 /uL (0-450); Eosinophils Percent Auto 6.3 % (2-4); Hematocrit 43.3 % (41-53); Hemoglobin 15.2 g/dL (13.5-17.5); Lymphocytes Absolute Auto 1100 /uL (1100-4500); Lymphocytes Percent Auto 20.5 % (25-40); Mean Corpuscular HGB Conc 35.1 % (30-36); Mean Corpuscular Hemoglobin 30.9 PG (26-34); Mean Corpuscular Volume 88.2 fL (80-100); Monocytes Absolute Auto 600 /uL (0-900); Monocytes Percent Auto 10.2 % (3-14); Neutrophils Absolute Auto 3500 /uL (1500-7000); Neutrophils Percent Auto 62.3 % (50-75); Platelet Count 163 X10^3/uL (150-400); Red Blood Cell Count 4.91 X10^6/uL (4.5-5.9); Red Cell Distribution Width 14.2 % (11.6-14.8); White Blood Cell Count 5.6 X10^3/uL (4.5-11.0)
[2021-10-15 09:27] LABS: Alanine Aminotransferase 18 IU/L (<50); Albumin Globulin Ratio 1.5 (1.0-2.8); Alkaline Phosphatase 92 U/L (38-126); Aspartate Aminotransferase 23 IU/L (17-59); BUN Creatinine Ratio 17.3 (6-22); Bilirubin Total 1.3 mg/dL (0.2-1.3); Blood Urea Nitrogen 19 mg/dL (9-20); Calcium 8.8 mg/dL (8.4-10.2); Carbon Dioxide 30 mmol/L (22-32); Chloride 108 mmol/L (98-107); Estimated Glomerular Filt Rate > 60 mL/min (>60); Globulin 2.6 g/dL (1.7-4.1); Glucose 95 mg/dL (80-110); HEMOLYSIS 16 (0-50); Potassium 3.9 mmol/L (3.4-5.1); Sodium 141 mmol/L (137-145); Total Protein 6.6 g/dL (6.3-8.2)
[2021-10-15 10:28] LABS: Bacteria Urine Occasional (0-1); Culture Indicated Urine Cult Not Indicated; Mucus Urine 1+ (Negative); RBC Urine None Seen (0-5/HPF); Squamous Epithelial Cell Urine None Seen (0-5/HPF); WBC Urine 0-1/HPF (0-5/HPF)
[2021-10-15 19:16] LABS: Creatinine Urine Random 217.1 mg/dL
[2021-10-15 19:30] LABS: Protein (Total) Urine Random < 5 mg/dL (0-12); Protein Creatinine Ratio Urine 0.02 GRAM/24H
[2021-10-17 03:39] LABS: Calcium 9.1 mg/dL (8.6-10.2); Parathyroid Hormone, Intact 78 pg/mL (15-65)
== END ==
PROVIDERS: PCP Family Medicine; Referring Provider Specialist; Visit Provider Specialist
DX: E78.5 Hyperlipidemia, unspecified (principal); N18.2 Chronic kidney disease, stage 2 (mild); I10 Essential (primary) hypertension
CPT/HCPCS: 36415; 80053; 81001; 82310; 82570; 83970; 84156; 85025

== ENCOUNTER → 2022-08-15 08:01 | Outpatient (CLI) | payer MEDICARE, SELFPAY ==
[2022-08-15 09:16] LABS: Add Manual Diff / Slide Review NO; Basophils Absolute Auto 0 /uL (0-100); Basophils Percent Auto 0.8 % (0-2); Eosinophils Absolute Auto 400 /uL (0-450); Eosinophils Percent Auto 8.5 % (2-4); Hematocrit 42.8 % (41-53); Hemoglobin 14.7 g/dL (13.5-17.5); Lymphocytes Absolute Auto 1300 /uL (1100-4500); Lymphocytes Percent Auto 26.8 % (25-40); Mean Corpuscular HGB Conc 34.3 % (30-36); Mean Corpuscular Hemoglobin 30.6 PG (26-34); Mean Corpuscular Volume 89.1 fL (80-100); Monocytes Absolute Auto 500 /uL (0-900); Monocytes Percent Auto 10.7 % (3-14); Neutrophils Absolute Auto 2700 /uL (1500-7000); Neutrophils Percent Auto 53.2 % (50-75); Platelet Count 180 X10^3/uL (150-400); Red Cell Distribution Width 13.8 % (11.6-14.8)
[2022-08-15 09:28] LABS: Alanine Aminotransferase 30 IU/L (<50); Albumin Globulin Ratio 1.5 (1.0-2.8); Alkaline Phosphatase 114 U/L (38-126); Aspartate Aminotransferase 26 IU/L (17-59); BUN Creatinine Ratio 19.2 (6-22); Blood Urea Nitrogen 25 mg/dL (9-20); Carbon Dioxide 29 mmol/L (22-32); Chloride 104 mmol/L (98-107); Estimated Glomerular Filt Rate 56 mL/min (>60); Globulin 2.7 g/dL (1.7-4.1); Glucose 112 mg/dL (80-110); HEMOLYSIS < 15 (0-50); Potassium 4.2 mmol/L (3.4-5.1); Sodium 142 mmol/L (137-145); Total Protein 6.7 g/dL (6.3-8.2)
[2022-08-15 11:01] LABS: Appearance Urine UA CLEAR; Bilirubin Urine UA NEGATIVE (NEGATIVE); Color Urine UA YELLOW; Glucose Urine UA NEGATIVE (Negative); Ketones Urine UA NEGATIVE (NEGATIVE); Leukocyte Esterase Urine UA NEGATIVE (NEGATIVE); Nitrite Urine UA NEGATIVE (Negative); Occult Blood Urine UA NEGATIVE (Negative); Protein Urine UA NEGATIVE (Negative); Specific Gravity Urine UA >=1.030 (1.000-1.035); Urobilinogen Urine UA 0.2 E.U./dL (0.2); pH Urine UA 5.5 (4.5-8.0)
[2022-08-15 11:17] LABS: Bacteria Urine Occasional (0-1); RBC Urine None Seen (0-5/HPF); WBC Urine 0-1/HPF (0-5/HPF)
[2022-08-15 11:18] LABS: Culture Indicated Urine Cult Not Indicated; Squamous Epithelial Cell Urine None Seen (0-5/HPF)
[2022-08-15 11:35] LABS: Creatinine Urine Random 220.6 mg/dL; Protein (Total) Urine Random 7 mg/dL (0-12); Protein Creatinine Ratio Urine 0.03 GRAM/24H
[2022-08-18 10:55] LABS: Calcium 7.4 mg/dL (8.6-10.2); Parathyroid Hormone, Intact 86 pg/mL (15-65)
== END ==
PROVIDERS: PCP Family Medicine; Referring Provider Specialist; Visit Provider Specialist
DX: E21.5 Disorder of parathyroid gland, unspecified (principal); N18.2 Chronic kidney disease, stage 2 (mild); R80.9 Proteinuria, unspecified
CPT/HCPCS: 36415; 80053; 81001; 82310; 82570; 83970; 84156; 85025

== ENCOUNTER → 2022-10-04 08:13 | Outpatient (CLI) | payer MEDICARE, SELFPAY ==
[2022-10-04 08:57] LABS: Add Manual Diff / Slide Review NO; Basophils Absolute Auto 0 /uL (0-100); Basophils Percent Auto 0.8 % (0-2); Eosinophils Absolute Auto 400 /uL (0-450); Eosinophils Percent Auto 7.2 % (2-4); Hematocrit 42.6 % (41-53); Lymphocytes Absolute Auto 1400 /uL (1100-4500); Lymphocytes Percent Auto 28.4 % (25-40); Mean Corpuscular HGB Conc 35.2 % (30-36); Monocytes Absolute Auto 600 /uL (0-900); Monocytes Percent Auto 11.1 % (3-14); Neutrophils Absolute Auto 2600 /uL (1500-7000); Neutrophils Percent Auto 52.5 % (50-75); Platelet Count 161 X10^3/uL (150-400); Red Blood Cell Count 4.84 X10^6/uL (4.5-5.9); Red Cell Distribution Width 14.4 % (11.6-14.8)
[2022-10-04 12:27] LABS: Appearance Urine UA CLEAR; Bilirubin Urine UA NEGATIVE (NEGATIVE); Color Urine UA YELLOW; Glucose Urine UA NEGATIVE (Negative); Ketones Urine UA NEGATIVE (NEGATIVE); Leukocyte Esterase Urine UA NEGATIVE (NEGATIVE); Nitrite Urine UA NEGATIVE (Negative); Occult Blood Urine UA NEGATIVE (Negative); Protein Urine UA NEGATIVE (Negative); Urobilinogen Urine UA 0.2 E.U./dL (0.2); pH Urine UA 5.5 (4.5-8.0)
[2022-10-04 12:46] LABS: Bacteria Urine None Seen; Culture Indicated Urine Cult Not Indicated; RBC Urine None Seen (0-5/HPF); Squamous Epithelial Cell Urine 0-1 /HPF (0-5/HPF); WBC Urine None Seen (0-5/HPF)
[2022-10-04 13:19] LABS: Creatinine Urine Random 144.2 mg/dL
[2022-10-04 13:26] LABS: Protein (Total) Urine Random < 5 mg/dL (0-12); Protein Creatinine Ratio Urine 0.03 GRAM/24H
[2022-10-04 17:50] LABS: Alanine Aminotransferase 32 IU/L (<50); Albumin 4.1 g/dL (3.5-5.0); Albumin Globulin Ratio 1.5 (1.0-2.8); Alkaline Phosphatase 115 U/L (38-126); Aspartate Aminotransferase 28 IU/L (17-59); BUN Creatinine Ratio 15.7 (6-22); Bilirubin Total 1.2 mg/dL (0.2-1.3); Blood Urea Nitrogen 18 mg/dL (9-20); Calcium 8.9 mg/dL (8.4-10.2); Carbon Dioxide 27 mmol/L (22-32); Chloride 106 mmol/L (98-107); Estimated Glomerular Filt Rate > 60 mL/min (>60); Globulin 2.7 g/dL (1.7-4.1); Glucose 108 mg/dL (80-110); HEMOLYSIS < 15 (0-50); Potassium 3.6 mmol/L (3.4-5.1); Sodium 141 mmol/L (137-145); Total Protein 6.8 g/dL (6.3-8.2)
[2022-10-04 18:33] LABS: Prostate Specific Antigen Scrn 2.32 ng/mL (0.1-4.0)
[2022-10-04 18:37] LABS: TSH w/ Reflex to FT4 0.45 uIU/mL (0.47-4.68)
[2022-10-04 19:56] LABS: Free T4, Direct Thyroxine 1.49 ng/dL (0.78-2.19)
== END ==
PROVIDERS: PCP Family Medicine; Referring Provider Specialist; Visit Provider Specialist
DX: N18.2 Chronic kidney disease, stage 2 (mild) (principal); Z12.5 Encounter for screening for malignant neoplasm of prostate; E03.9 Hypothyroidism, unspecified; I10 Essential (primary) hypertension; N40.1 Benign prostatic hyperplasia with lower urinary tract symptoms; R35.0 Frequency of micturition
CPT/HCPCS: 36415; 80053; 81001; 82570; 84156; 84439; 84443; 85025; G0103

== ENCOUNTER → 2023-02-02 11:01 | Outpatient (CLI) | payer MEDICARE, SELFPAY ==
--- NOTE | 2023-02-02 11:02 | DI.RAD.S_ITS ---
PROCEDURE: XR LUMBAR SPINE MIN 4V INDICATIONS: eval low back pain TECHNIQUE: Three views of the lumbar spine acquired COMPARISON: None. FINDINGS: Bones: 5 nonrib-bearing vertebrae are present. There is normal bony alignment. Mild joint space narrowing at L4-L5 and L5-S1. Bilateral facet arthropathy at L4-L5 and L5-S1. No vertebral body compression fractures. No suspicious bony lesions. Soft tissues: Overlying bowel gas pattern is normal. No suspicious soft tissue calcifications. Flexion/extension: There is normal range of motion, with preserved normal alignment. IMPRESSION: No acute osseous abnormality. Mild disc height loss and bilateral facet arthropathy at L4-L5 and L5-S1. Approved by: Celia Reaves M.D. on 02/02/2023 at 13:46
== END ==
PROVIDERS: PCP Family Medicine; Referring Provider Family Medicine; Visit Provider Family Medicine
DX: M47.816 Spondylosis without myelopathy or radiculopathy, lumbar region (principal); M47.817 Spondylosis without myelopathy or radiculopathy, lumbosacral region; M54.50 Low back pain, unspecified
CPT/HCPCS: 72100

== ENCOUNTER → 2023-09-11 09:17 | Outpatient (CLI) | payer MEDICARE, OTHER, SELFPAY ==
[2023-09-11 10:43] LABS: Add Manual Diff / Slide Review NO; Basophils Absolute Auto 0 /uL (0-100); Basophils Percent Auto 0.7 % (0-2); Eosinophils Absolute Auto 300 /uL (0-450); Eosinophils Percent Auto 5.8 % (2-4); Hematocrit 42.6 % (41-53); Hemoglobin 14.6 g/dL (13.5-17.5); Lymphocytes Absolute Auto 1200 /uL (1100-4500); Lymphocytes Percent Auto 21.9 % (25-40); Mean Corpuscular HGB Conc 34.4 % (30-36); Mean Corpuscular Hemoglobin 30.9 PG (26-34); Monocytes Absolute Auto 600 /uL (0-900); Monocytes Percent Auto 9.8 % (3-14); Neutrophils Absolute Auto 3500 /uL (1500-7000); Neutrophils Percent Auto 61.8 % (50-75); Platelet Count 170 X10^3/uL (150-400); Red Blood Cell Count 4.73 X10^6/uL (4.5-5.9); Red Cell Distribution Width 14.2 % (11.6-14.8); White Blood Cell Count 5.6 X10^3/uL (4.5-11.0)
[2023-09-11 10:53] LABS: Alanine Aminotransferase 27 IU/L (<50); Albumin Globulin Ratio 1.5 (1.0-2.8); Alkaline Phosphatase 92 U/L (38-126); Aspartate Aminotransferase 27 IU/L (17-59); BUN Creatinine Ratio 16.7 (6-22); Bilirubin Total 1.7 mg/dL (0.2-1.3); Blood Urea Nitrogen 19 mg/dL (9-20); Calcium 8.7 mg/dL (8.4-10.2); Carbon Dioxide 27 mmol/L (22-32); Chloride 110 mmol/L (98-107); Estimated Glomerular Filt Rate > 60 mL/min (>60); Globulin 2.6 g/dL (1.7-4.1); Glucose 115 mg/dL (80-110); HEMOLYSIS < 15 (0-50); Potassium 3.9 mmol/L (3.4-5.1); Sodium 142 mmol/L (137-145); Total Protein 6.6 g/dL (6.3-8.2)
[2023-09-11 11:07] LABS: Appearance Urine UA CLEAR; Bilirubin Urine UA 1+ (NEGATIVE); Color Urine UA YELLOW; Glucose Urine UA NEGATIVE (Negative); Ketones Urine UA NEGATIVE (NEGATIVE); Leukocyte Esterase Urine UA NEGATIVE (NEGATIVE); Nitrite Urine UA NEGATIVE (Negative); Occult Blood Urine UA NEGATIVE (Negative); Protein Urine UA NEGATIVE (Negative); Specific Gravity Urine UA 1.025 (1.000-1.035); pH Urine UA 5.5 (4.5-8.0)
[2023-09-11 11:14] LABS: Ictotest Urine Negative (Negative)
[2023-09-11 15:26] LABS: Creatinine Urine Random 279.55 mg/dL
[2023-09-11 15:29] LABS: Protein (Total) Urine Random < 5 mg/dL (0-12); Protein Creatinine Ratio Urine 0.01 GRAM/24H
== END ==
PROVIDERS: PCP Family Medicine; Referring Provider Specialist; Visit Provider Specialist
DX: N18.2 Chronic kidney disease, stage 2 (mild) (principal); R80.9 Proteinuria, unspecified; E21.5 Disorder of parathyroid gland, unspecified
CPT/HCPCS: 36415; 80053; 81003; 82310; 82570; 83970; 84156; 85025

== ENCOUNTER → 2024-01-01 07:51 | Outpatient (CLI) | payer MEDICARE, OTHER, SELFPAY ==
[2024-01-01 09:37] LABS: Cholesterol 160 mg/dL (140-199); HDL Cholesterol 42 mg/dL (40-60); LDL Cholesterol Calculated 96 mg/dL (<100); Triglycerides 111 mg/dL (35-150)
[2024-01-01 09:47] LABS: T4 Total Thyroxine 6.97 ug/dL (5.5-11.0)
[2024-01-01 10:04] LABS: Thyroid Stimulating Hormone 0.714 uIU/mL (0.47-4.68)
[2024-01-01 10:05] LABS: Prostate Specific Antigen Scrn 2.12 ng/mL (0.1-4.0)
== END ==
LOC: LAB 07:52
PROVIDERS: PCP Family Medicine; Referring Provider Family Medicine; Visit Provider Family Medicine
DX: E78.00 Pure hypercholesterolemia, unspecified (principal); Z12.5 Encounter for screening for malignant neoplasm of prostate; N40.1 Benign prostatic hyperplasia with lower urinary tract symptoms; R35.0 Frequency of micturition; E03.9 Hypothyroidism, unspecified; I10 Essential (primary) hypertension
CPT/HCPCS: 36415; 80061; 84436; 84443; G0103

== ENCOUNTER 2024-04-23 08:07 | Day surgery (SDC) | payer MEDICARE, OTHER, SELFPAY ==
--- NOTE | 2024-04-23 | PATH_ITS ---
[facility] Accession Number: [id number] No. of containers..01 Tissue . 01 Material submitted: . colon - DESCENDING COLON POLYP . 01 Diagnosis: DESCENDING COLON POLYP: Colonic mucosa with benign lymphoid aggregate. No neoplasm identified. . Specimen Comments: Additional step sections were examined. [facility] 04/25/20241612 Local . 01 Electronically signed: . Vamshi Kincaid MD, Pathologist NPI- [id number] . 01 Gross description: . Received in formalin with two patient identifiers and 1. Descending colon polyp, is a single ruffin soft tissue fragment, 0.9 cm in greatest dimension, submitted in A1. ([id number]) /MRV 04/25/20241612 Local . 01 Pathologist provided ICD-10: K63.89 . 01 CPT . 300697 Specimen Comment: A courtesy copy of this report has been sent to [facility] Pathology Performed at: 01 [facility] [address], [place], [place] [id number] MD Vamshi Kincaid MD Phone: [phone]
[2024-04-23 08:33] VITALS: BP 164/88; PULSE 66; RESP 16; TEMP 36; O2SAT 98
[2024-04-23] MEDS: LACTATED RINGERS 1,000 ML 42 ML IV (08:46)
--- NOTE | 2024-04-23 08:54 | P.HP_ITS ---
History of Present Illness History of Present Illness Date Patient Seen: 04/23/24 Time Patient Seen: 08:54 Chief complaint: Colonoscopy w/poss bx Narrative: 79-year-old white male 5 years ago had a colonoscopy with polyps and extensive diverticulosis. No symptoms of diverticulitis. [facility] Medical History Medicare annual wellness visit, subsequent Acquired spondylolysis of lumbar spine Well adult exam Subdural hygroma BPH (benign prostatic hyperplasia) Hypothyroidism Chronic rhinitis Fx wrist (2000) Cataract (Unknown) GERD (gastroesophageal reflux disease) (Unknown) Chronic renal insufficiency (Unknown) BPH (benign prostatic hyperplasia) (Unknown) Glaucoma (Unknown) Hyperlipemia (Unknown) Erectile dysfunction (Unknown) Hypertension (Unknown) Chronic renal insufficiency, stage III (moderate) (05/12/16) Essential hypertension (08/20/15) Surgical History History of carpal tunnel surgery (1984) Hx of cataract surgery (2015) Family History Father Heart disease Grandfather Cancer Grandmother No problems noted. Mother Cancer Grandmother No problems noted. Grandfather Heart disease Sister No problems noted. Social History household members: spouse Smoking Status: Never smoker alcohol intake: current Meds Home Medications and Allergies Home Medications Medication Instructions Recorded Confirmed Type timolol maleate 0.5 % eye drops 1 drp OPHTH BID ##0 06/13/16 04/23/24 History latanoprost (PF) 0.005 % eye drops 1 drop EYE-BOTH DAILY 01/30/18 04/23/24 History doxazosin 2 mg tablet 2 mg PO DAILY 10/01/18 04/23/24 History cetirizine 10 mg capsule (Zyrtec) PO 11/07/18 01/09/24 History aspirin 81 mg tablet,delayed 81 mg PO DAILY 09/20/19 04/23/24 History release (Adult Aspirin Regimen) levothyroxine 75 mcg tablet 75 mcg PO DAILY #90 tabs 10/30/23 04/23/24 Rx losartan 50 mg tablet 50 mg PO DAILY 10/30/23 04/23/24 History simvastatin 20 mg tablet 20 mg PO ONCE PM #90 tabs 10/30/23 04/23/24 Rx tizanidine 2 mg tablet 2 mg PO TID PRN muscle spasticity 10/30/23 04/23/24 Rx #270 tabs hydrochlorothiazide 12.5 mg tablet 12.5 mg PO DAILY #90 tabs 03/11/24 04/23/24 Rx sodium,potassium,mag sulfates 17.5 See Rx Instructions PO .COMPLEX 03/21/24 Rx gram-3.13 gram-1.6 gram oral soln #354 mL (Suprep Bowel Prep Kit) atenolol 50 mg tablet 50 mg PO QPM #90 tabs 03/22/24 04/23/24 Rx amlodipine 2.5 mg tablet 2.5 mg PO BID #180 tabs 04/18/24 04/23/24 Rx Allergies Allergy/AdvReac Type Severity Reaction Status Date / Time Penicillins [PENICILLINS] Allergy Mild Redness of Verified 04/23/24 08:18 Skin Review of Systems Review of Systems ROS: Yes All systems reviewed with the patient and are negative except as otherwise documented Exam Vital Signs (past 8 hours): - 04/23/24 08:33 Temperature 96.8 F L Pulse Rate 66 Respiratory Rate 16 Blood Pressure 164/88 H Pulse Oximetry 98 Oxygen Delivery Method Room Air Oxygen Delivery Method Room Air Narrative Exam Narrative: Gen: NAD, sitting comfortably in bed, appears well HEENT: Sclera are anicteric, head is normocephalic and atraumatic, trachea is midline. CV: RRR, no JVD Resp: clear to auscultation bilaterally, equal chest wall movement bilaterally Abd: soft, nontender, normoactive bowel sounds Ext: no edema, full range of motion Neuro: Cranial nerves II-XII grossly intact, no focal deficits Skin: No erythema or ecchymosis Assessment & Plan Assessment and plan (1) History of colon polyps: Status: Acute Assessment & Plan narrative: Patient presents for colonoscopy Risks, benefits, alternatives to colonoscopy explained, including but not limited to bowel perforation or other serious complication requiring surgery at less than 1 in 5000 colonoscopies, abdominal pain, cramping or bleeding and less than 1% of colonoscopies, and the chances that we find a diagnosis that would require further intervention of about 2%. Patient agrees to proceed. Time-Based Coding :: [TOTAL MINUTES] spent with patient and on the chart (including review of chart, obtaining history, exam, reviewing outside data, placing orders, documenting exam and treatment plan, and counseling patient) on [DATE]. PROFEE [employer] Document charge(s): No
--- NOTE | 2024-04-23 09:20 | PM.OP.COLON ---
Operative Date/Time/Diagnoses Date of procedure: 04/23/24 Time of procedure: 09:21 Pre-op diagnosis: Personal history of polyps Post-op diagnosis: same Procedure & Clinicians Study performed: Colonoscopy with forceps polypectomy descending colon polyp Same procedure as scheduled: Yes Indications: Personal history of polyps Surgeon: Man Virgen Procedure Notes SCOAP/Timeout: Performed Procedure in detail: Time-out was performed. Mac was induced. Patient was placed in left lateral decubitus position. The perineum was inspected without any gross abnormality. Lubricated pediatric colonoscope was inserted and advanced to the cecum. The terminal ileum was intubated. The colonoscope was withdrawn slowly inspecting the circumference of the colon. There was a 3 mm polyp in the descending colon that was very sessile in the snare could not grasp, so a forceps polypectomy was performed. The polyp was completely removed and collected. Pancolonic extensive diverticulosis. Very small polyps may have been missed, prep quality was adequate. Retroflexed view of the rectum showed small, non prolapsed nonbleeding internal hemorrhoids. The scope was withdrawn the patient was taken to PACU in good condition. Scope withdrawal time: 14 Findings: divertiulosis and polyp(s) Specimen(s): other (Descending colon polyp) Post-procedure Recommendations: Colonoscopy in 10 years (No further colonoscopies needed beyond age 80.) Follow up: as needed Disposition: PACU
[2024-04-23 09:21] VITALS: BP 90/50; PULSE 60; RESP 17; TEMP 36.3; O2SAT 94
[2024-04-23 09:29] VITALS: BP 95/51; PULSE 64; RESP 18; TEMP 36.3; O2SAT 94
[2024-04-23 09:31] VITALS: BP 95/52; PULSE 20; RESP 94; TEMP 36.1
[2024-04-23 09:36] VITALS: BP 115/71; PULSE 69; RESP 16; O2SAT 94
== END 2024-04-23 09:57 | disposition home or self-care (01) ==
PROVIDERS: PCP Family Medicine; Referring Provider Surgery; Visit Provider Surgery
PROC: 0DJD8ZZ Inspection of Lower Intestinal Tract, Via Natural or Artificial Opening Endoscopic (ICD-10-PCS; CPT 45378; principal; 2024-04-23 09:15)
DX: Z12.11 Encounter for screening for malignant neoplasm of colon (principal); Z86.0100 Personal history of colon polyps, unspecified; K57.30 Diverticulosis of large intestine without perforation or abscess without bleeding; K64.8 Other hemorrhoids; K63.5 Polyp of colon
CPT/HCPCS: 45380; J2704

== ENCOUNTER → 2024-09-26 09:33 | Outpatient (CLI) | payer MEDICARE, OTHER, SELFPAY ==
[2024-09-26 11:13] LABS: Appearance Urine UA CLEAR; Bilirubin Urine UA NEGATIVE (NEGATIVE); Color Urine UA YELLOW; Glucose Urine UA NEGATIVE (Negative); Ketones Urine UA TRACE (NEGATIVE); Leukocyte Esterase Urine UA NEGATIVE (NEGATIVE); Nitrite Urine UA NEGATIVE (Negative); Occult Blood Urine UA NEGATIVE (Negative); Protein Urine UA NEGATIVE (Negative); Specific Gravity Urine UA 1.025 (1.000-1.035); Urobilinogen Urine UA 0.2 E.U./dL (0.2); pH Urine UA 5.5 (4.5-8.0)
[2024-09-26 11:29] LABS: Alanine Aminotransferase 27 IU/L (<50); Albumin 4.2 g/dL (3.5-5.0); Albumin Globulin Ratio 1.7 (1.0-2.8); Alkaline Phosphatase 108 U/L (38-126); Blood Urea Nitrogen 21 mg/dL (9-20); Calcium 8.9 mg/dL (8.4-10.2); Carbon Dioxide 23 mmol/L (22-32); Chloride 108 mmol/L (98-107); Estimated Glomerular Filt Rate > 60 mL/min (>60); Globulin 2.5 g/dL (1.7-4.1); Glucose 120 mg/dL (70-99); HEMOLYSIS < 15 (0-50); Magnesium 1.8 mg/dL (1.6-2.3); Phosphorous 3.1 mg/dL (2.3-3.7); Potassium 3.8 mmol/L (3.4-5.1); Sodium 141 mmol/L (137-145); Total Protein 6.7 g/dL (6.3-8.2)
[2024-09-26 11:47] LABS: Protein (Total) Urine Random 7 mg/dL (0-12); Protein Creatinine Ratio Urine 0.02 GRAM/24H
[2024-09-26 11:51] LABS: Microalbumi Creatinin Ratio Ur 6.0 ug/mg CR (<30)
== END ==
PROVIDERS: PCP Family Medicine; Referring Provider Family Medicine; Visit Provider Internal Medicine Nephrology
DX: N18.2 Chronic kidney disease, stage 2 (mild) (principal)
CPT/HCPCS: 36415; 80053; 81001; 82043; 82570; 83735; 84100; 84156